=== PATIENT | male | born 1935 | race Caucasian/White ===

== ENCOUNTER 2017-08-24 12:09 | Emergency (ER) | payer OTHER, MEDICARE ==
[~2017-08-24] VITALS: Ht 182.9 cm; Wt 100.0 kg
[2017-08-24 12:48] LABS: HEMATOCRIT 40.3 % (39.0-50.0); HEMOGLOBIN 13.3 g/dl (14.0-18.0); IMMATURE GRANULOCYTES 0.5 % (0.0-1.0); MEAN CELL VOLUME 95.3 fL CALC (80.0-100.0); MEAN CORPUSCULAR HGB 31.4 pG CALC (26.0-32.0); NEUT# 6.27 thou/uL (1.82-7.42); RED BLOOD COUNT 4.23 mill/uL (4.70-6.10); RED CELL DISTRI WIDTH 12.4 % (11.5-15.5)
[2017-08-24] MEDS ORDERED: LASIX20 MG PO (13:09)
[2017-08-24] MEDS ORDERED: KLOR-CON 1010 MEQ PO (13:10)
[2017-08-24 13:18] LABS: ALBUMIN 3.8 g/dL (3.2-5.0); BILIRUBIN, TOTAL 1.1 mg/dL (0.0-1.4); CREATININE 1.5 mg/dL (0.7-1.3); POTASSIUM 4.7 mmol/l (3.5-5.1); TOTAL PROTEIN 6.9 g/dL (6.3-8.2)
[2017-08-24] MEDS ORDERED: CARVEDILOL6.25 MG PO (13:53)
[2017-08-24] MEDS ORDERED: CLOPIDOGREL75 MG PO (13:53)
[2017-08-24] MEDS ORDERED: DIGOXIN0.125 MG PO (13:54)
[2017-08-24] MEDS ORDERED: LISINOPRIL20 MG PO (13:54)
[2017-08-24] MEDS ORDERED: FINASTERIDE5 MG PO (13:55)
[2017-08-24] MEDS ORDERED: LO-DOSE ASA81 MG PO (13:55)
[2017-08-24] MEDS ORDERED: GLIPIZIDE5 MG PO (13:56)
[2017-08-24] MEDS ORDERED: LORATADINE10 M1 PO (13:56)
[2017-08-24] MEDS ORDERED: ALDACTONE25 MG PO (13:57)
[2017-08-24] MEDS ORDERED: ATORVASTATIN CA80 MG PO (13:58)
[2017-08-24] MEDS ORDERED: DONEPEZIL5 MG PO (13:58)
[2017-08-24] MEDS ORDERED: TAMSULOSIN HCL0.4 MG PO (13:59)
[2017-08-24] MEDS ORDERED: SENNA PO (13:59)
[2017-08-24] MEDS ORDERED: NITROGLYCER0.4 MG/HR SL (14:03)
[2017-08-24 14:26] VITALS: BP 101/64
== END 2017-08-24 14:26 | disposition short-term general hospital (02) | DRG 282 ==
LOC: ED 12:09
PROVIDERS: Emergency Medicine
DX: I21.4 Non-ST elevation (NSTEMI) myocardial infarction (principal); R06.02 Shortness of breath; R07.9 Chest pain, unspecified; R60.0 Localized edema
CPT/HCPCS: J1650